=== PATIENT | male | born 1940 | race Caucasian/White ===

== ENCOUNTER → 2024-02-23 08:24 | Outpatient (REF) | payer MEDICARE, OTHER, SELFPAY ==
[2024-02-23 11:05] LABS: Albumin 4.2 g/dl (3.5-5.0); Blood Urea Nitrogen 32 mg/dl (9-20); Calcium 9.3 mg/dl (8.4-10.2); Carbon Dioxide 29 mmol/L (22-30); Chloride 108 mmol/L (98-107); Glucose 87 mg/dl (70-99); Phosphorus 3.4 mg/dl (2.5-4.5); Potassium 5.4 mmol/L (3.5-5.1); Sodium 141 mmol/L (135-145); eGFR 27.83
== END ==
LOC: HWLAB 08:24
PROVIDERS: ATTENDING PHYSICIAN Specialist; FAMILY PHYSICIAN Family Medicine
DX: I10 Essential (primary) hypertension (principal)
CPT/HCPCS: 36415; 80069

== ENCOUNTER → 2024-05-16 11:04 | Outpatient (REF) | payer MEDICARE, OTHER, SELFPAY ==
[2024-05-16 15:11] LABS: Hematocrit 38.6 % (39.0-52.0); Mean Corp Hgb Conc. 33.7 g/dL (33.0-37.0); Mean Corpuscular Hgb 32.7 pg (27.0-31.0); Mean Platelet Volume 10.7 fL (7.4-10.4); Platelet Count 181 10^3/uL (130-400); Red Blood Cell Count 3.98 10^6/uL (4.70-6.10); Red Cell Dist. Width 13.6 % (11.5-14.5); White Blood Cell Count 5.6 10^3/uL (4.8-10.8)
[2024-05-16 15:23] LABS: Albumin 4.1 g/dl (3.5-5.0); Blood Urea Nitrogen 36 mg/dl (9-20); Calcium 9.4 mg/dl (8.4-10.2); Carbon Dioxide 28 mmol/L (22-30); Chloride 106 mmol/L (98-107); Glucose 140 mg/dl (70-99); Phosphorus 3.4 mg/dl (2.5-4.5); Sodium 141 mmol/L (135-145); eGFR 27.66
== END ==
LOC: HWLAB 11:04
PROVIDERS: ATTENDING PHYSICIAN Specialist; FAMILY PHYSICIAN Family Medicine
DX: I10 Essential (primary) hypertension (principal)
CPT/HCPCS: 36415; 80069; 83970; 85027

== ENCOUNTER → 2024-05-23 09:09 | Outpatient (REF) | payer MEDICARE, OTHER, SELFPAY | LOC: HWRCS 09:09 | PROVIDERS: ATTENDING PHYSICIAN Internal Medicine Cardiovascular Disease; FAMILY PHYSICIAN Family Medicine | DX: I45.2 Bifascicular block (principal); I42.8 Other cardiomyopathies | CPT/HCPCS: 93306 ==

== ENCOUNTER 2024-06-30 18:44 | Emergency (ER) | payer MEDICARE, OTHER, SELFPAY ==
--- NOTE | 2024-06-30 19:04 | ED.GENMED ---
History of Present Illness
General
Chief Complaint: CODE
Time Seen by Provider: 06/30/24 18:54
History of Present Illness
History of Present Illness:
84-year-old male presents to the emergency room via ambulance in cardiac arrest. Patient was eating with family at a diner when he began to cough. He became unresponsive and fell to the side. Paramedics arrived to find the patient unresponsive
and without a pulse. He was intubated though they did note material in the airway. They were able to ventilate him and did have positive carbon dioxide detection. Despite 8 rounds of epinephrine, 300 mg of amiodarone and 1 hour or more of CPR the
patient arrives without a pulse.
Past History
Past History
ED Past Medical History: CHF and HTN
ED Past Surgical History: Other (Hernia repair)
Social History
Tobacco: Non-smoker
Alcohol: None
Drug: None
Personal:
Living: with family
Phy Exam
Physical Exam
Physical Exam:
CODE EXAM:
VITAL SIGNS: No palpable blood pressure, no pulses, no respiration.
GENERAL EXAM: Mottled
EYES: Pupils fixed
ENT: Patient intubated
NECK: No venous distention
RESPIRATORY: Equal breath sounds
CARDIAC: Absent heart sounds
VASCULAR: Absent pulses
ABDOMEN: Soft no masses
GUAIAC: Not done
MUSCULOSKELETAL: Unable to evaluate strength
EXTREMITIES: No edema or contractures
SKIN: No rash
PSYCH: Mood, affect unable to evaluate
MDM/Problems Addressed
Differential Diagnosis Includes:
Airway obstruction, ventricular fibrillation, PE
MDM/Problems Addressed:
Patient presents to the emergency room in cardiac arrest. Despite heroic efforts by the paramedics he arrives without a pulse. He was placed on the monitor and has pacer spikes without capture and then idioventricular underlying rhythm. Pt
pronounced @ 1852
Spoke with the biomedical engineering internship who releases jurisdiction. Spoke with investigator Limon. Patient's primary care doctor will certify the . Spoke with the doctor on-call, Dr. Ally hTorne
*Critical Care Note
Total Time (30-74mins, 75-104mins- exclusive of procedures): 20 min
comment:
Critical care statement: A total of 20 minutes of critical care time was provided for this patient. This includes management of unstable vital signs, evaluation of the patient at bedside, reviewing the patient's pertinent medical records, discussion
with consultants, review of old EKGs and review of pertinent medical records. This time with separate from time utilized to perform the aforementioned documented procedures
ED Attending Note
-
Portions of this chart may have been created with voice recognition software.� Occasional wrong word or��sound alike� substitutions may have occurred due to the inherent limitations of voice recognition software.
Discharge Plan
Departure
Patient Disposition:
Date of Disposition: 06/30/24
Time of Disposition: 19:20
Discharge Problem:
Cardiac arrest
Prescriptions:
No Action
famotidine 20 MG tablet
20 mg PO HSPRN PRN (Reason: gerd)
benzonatate 100 MG capsule
100 mg PO TIDPRN PRN (Reason: cough)
furosemide 40 MG tablet
40 mg PO DAILY 30 Days Qty: 30 0RF
cyanocobalamin (vitamin B-12) 1,000 MCG tablet
1,000 mcg PO DAILY
aspirin [Cayla Low Dose Aspirin] 81 MG tablet,delayed release (DR/EC)
81 mg PO DAILY
yywnfpcm-hol-MP-lycopen-lutein [Centrum Silver] 1 EACH tablet
1 ea PO DAILY
dapagliflozin propanediol [Farxiga] 10 MG tablet
10 mg PO DAILY
ascorbic acid (vitamin C) 500 MG capsule
500 mg PO DAILY
Cholecalciferol (Vitamin D3) [Vitamin D3] 50 MCG Capsule
50 mcg PO DAILY
metoprolol succinate 25 MG tablet extended release 24 hr
25 mg PO BID Qty: 0 0RF
Patient Comments:
Had been taking 25mg BID, decreased to daily, then d/c 02/27/22
Rx Instructions:
Please resume at twice a day as before
Discharge Date and Time
Print Language: ARGENTINE
== END 2024-06-30 23:35 | disposition expired ==
LOC: EMR 18:44
PROVIDERS: EMERGENCY PHYSICIAN Emergency Medicine
DX: I46.9 Cardiac arrest, cause unspecified (principal); I11.0 Hypertensive heart disease with heart failure; I50.9 Heart failure, unspecified
CPT/HCPCS: 99285; 92950